=== PATIENT | male | born 1995 | race African-American/Black ===

== ENCOUNTER 2018-11-09 17:03 | Emergency (ER) | payer OTHER ==
[~2018-11-09] VITALS: Ht 190.5 cm; Wt 82.6 kg
[2018-11-09] MEDS ORDERED: FAMOTIDINE 20 MG/2 ML VIAL IVP ONE (17:35)
[2018-11-09] MEDS ORDERED: NACL 0.9% 1,000 ML IV ONE ×2 (17:35→19:15)
[2018-11-09] MEDS ORDERED: ONDANSETRON 4 MG/2 ML VIAL IVP ONE ×2 (17:35→19:15)
[2018-11-09 18:15] LABS: BASOPHILS % (AUTO) 0.2 % (0.0-2.0); HEMATOCRIT 47.8 % (36-52); HEMOGLOBIN 16.1 g/dL (12.0-18.0); LYMPHOCYTES # (AUTO) 1.5 K/uL (2.0-11.5); LYMPHOCYTES % (AUTO) 18.6 % (20.5-51.1); MEAN CORPUSCULAR HEMOGLOBIN 33 pg (27-31); MEAN CORPUSCULAR HGB CONC 34 g/dL (33-37); MEAN CORPUSCULAR VOLUME 96.8 fL (80-94); MONOCYTES # (AUTO) 0.5 K/uL (0.8-1.0); NEUTROPHILS # (AUTO) 6.1 K/uL (1.8-7.7); NEUTROPHILS % (AUTO) 75.2 % (42.2-75.2); PLATELET COUNT (AUTO) 241 K/uL (140-450); RED BLOOD CELL COUNT(AUTO) 4.94 MIL/uL (4.20-6.10); RED CELL DISTRIBUTION WIDTH 13.1 % (11.6-13.7); WHITE BLOOD COUNT (AUTO) 8.2 K/uL (4.8-10.8)
--- NOTE | 2018-11-09 18:17 | NUR ---
BROUGHT IN BY FRIEND-, PT WITH SEVERE NAUSEA AND DRY HEAVING. ADMITS TO HAVE DRANK A BOTTLE OF VODKA BY HIMSELF LAST NIGHT. PT UNABLE TO REMAIN STILL FOR MORE THAN 2-3 MINS. DENIES INJURY TO SELF OR OTHERS. FULL CLEAR SPEECH
--- NOTE | 2018-11-09 18:30 | NUR ---
PT PLACED ON BEDSIDE [employer]ING [employer]ER
[2018-11-09 18:33] LABS: ANION GAP 20.9 (8-16); CREATININE 1.2 mg/dL (0.7-1.3); POTASSIUM 3.9 mmol/L (3.5-5.1)
[2018-11-09 18:38] LABS: ALBUMIN 4.7 g/dL (3.4-5.0)
--- NOTE | 2018-11-09 19:00 | NUR ---
PT RESTING IN BED, STATES HE FEELS A LITTLE BETTER BUT WOULD LIKE SOME MORE FLUIDS TO BE GIVEN.
[2018-11-09 20:49] VITALS: BP 116/67
--- NOTE | 2018-11-09 20:50 | NUR ---
Patient discharged with v/s stable. Written and verbal after care instructions given and explained. Patient alert, oriented and verbalized understanding of instructions. Ambulatory with steady gait. All questions addressed prior to discharge. ID band removed. Patient advised to follow up with PMD. Rx of PEPCID, ZOFRAN given. Patient educated on indication of medication including possible reaction and side effects. Opportunity to ask questions provided and answered.
== END 2018-11-09 20:50 | disposition home or self-care (01) ==
LOC: MED 17:03
DX: K29.70 Gastritis, unspecified, without bleeding (principal); F32.9 Major depressive disorder, single episode, unspecified; Z88.8 Allergy status to other drugs, medicaments and biological substances; Z91.018 Allergy to other foods
CPT/HCPCS: 36415; 80053; 85025; 96361; 96374; 96375; 96376; 99283; J2405; J3490; J7030

== ENCOUNTER 2019-03-28 11:43 | Emergency (ER) | payer OTHER ==
[~2019-03-28] VITALS: Ht 182.9 cm; Wt 83.0 kg
[2019-03-28 11:50] VITALS: BP 131/68
--- NOTE | 2019-03-28 11:51 | NUR ---
Patient ambulated to bed 9. RN evaluating patient at bedside.
--- NOTE | 2019-03-28 11:56 | NUR ---
PT COUGH X 3 WEEKS. REQUESTING COUGH SYRUP WITH PROMETHAZINE. PATIENT STATES PAIN OF 4/10 AT THIS TIME; VSS; PATIENT POSITIONED FOR COMFORT; HOB ELEVATED; BEDRAILS UP X1; BED DOWN. ER MD MADE AWARE OF PT STATUS.
[2019-03-28 12:28] VITALS: BP 121/61
--- NOTE | 2019-03-28 12:28 | NUR ---
Patient discharged with v/s stable. Written and verbal after care instructions given and explained. Patient alert, oriented and verbalized understanding of instructions. Ambulatory with steady gait. All questions addressed prior to discharge. ID band removed. Patient advised to follow up with PMD. Rx of Promethazine given. Patient educated on indication of medication including possible reaction and side effects. Opportunity to ask questions provided and answered.
== END 2019-03-28 12:28 | disposition home or self-care (01) ==
LOC: MED 11:43
DX: R05 Cough (principal); F17.210 Nicotine dependence, cigarettes, uncomplicated; F15.10 Other stimulant abuse, uncomplicated; Z91.02 Food additives allergy status
CPT/HCPCS: 99283

== ENCOUNTER 2019-05-07 15:24 | Emergency (ER) | payer OTHER ==
[~2019-05-07] VITALS: Ht 190.5 cm; Wt 74.4 kg
[2019-05-07 15:25] VITALS: BP 136/99
--- NOTE | 2019-05-07 15:31 | NUR ---
Triage completed, ambulated out to ER waiting room.
--- NOTE | 2019-05-07 15:41 | NUR ---
Patient ambulated to bed 2.
[2019-05-07 16:18] VITALS: BP 130/60
--- NOTE | 2019-05-07 16:18 | NUR ---
Patient discharged with v/s stable. Written and verbal after care instructions given and explained. Patient alert, oriented and verbalized understanding of instructions. Ambulatory with steady gait. All questions addressed prior to discharge. ID band removed. Patient advised to follow up with PMD. Rx of ALBUTEROL, PROMETHAZINE given. Patient educated on indication of medication including possible reaction and side effects. Opportunity to ask questions provided and answered.
== END 2019-05-07 16:18 | disposition home or self-care (01) ==
LOC: MED 15:24
DX: J45.909 Unspecified asthma, uncomplicated (principal)
CPT/HCPCS: 99283

== ENCOUNTER 2019-06-17 12:23 | Emergency (ER) | payer OTHER ==
[~2019-06-17] VITALS: Ht 190.5 cm; Wt 81.6 kg
[2019-06-17 12:29] VITALS: BP 141/86
--- NOTE | 2019-06-17 12:58 | NUR ---
23 Y/O MALE C/O COUGH/SORE THROAT X1 WEEK, DRY COUGH AND ITCHY THROAT. DENIES ANY RECENT TRAVEL/ILLNESS. RESP EVEN AND UNLABORED. DENIES CP/SOB. LUNG SOUNDS CLEAR IN BILAT LOBES. DENIES N/V/D. BOWEL SOUNDS NORMOACTIVE IN ALL QUADRANTS. AAOX4. CAP REFILL <3. NO DISTRESS NOTED AT THIS TIME. PMH: ASTHMA NKA
[2019-06-17] MEDS ORDERED: DEXAMETHASONE 4 MG/ML VIAL PO ONE (13:00)
[2019-06-17 13:41] VITALS: BP 141/86
--- NOTE | 2019-06-17 13:42 | NUR ---
Patient discharged with v/s stable. Written and verbal after care instructions given and explained. Patient alert, oriented and verbalized understanding of instructions. Ambulatory with steady gait. All questions addressed prior to discharge. ID band removed. Patient advised to follow up with PMD. Rx of HYDROCORTISONE CREAM given. Patient educated on indication of medication including possible reaction and side effects. Opportunity to ask questions provided and answered.
== END 2019-06-17 13:42 | disposition home or self-care (01) ==
LOC: MED 12:23
DX: S40.862A Insect bite (nonvenomous) of left upper arm, initial encounter (principal); J06.9 Acute upper respiratory infection, unspecified; J45.909 Unspecified asthma, uncomplicated; Z91.018 Allergy to other foods; W57.XXXA Bitten or stung by nonvenomous insect and other nonvenomous arthropods, initial encounter; Y93.89 Activity, other specified; Y92.89 Other specified places as the place of occurrence of the external cause; Y99.8 Other external cause status
CPT/HCPCS: 99283; J1100

== ENCOUNTER 2021-01-15 22:09 | Emergency (ER) | payer OTHER ==
[~2021-01-15] VITALS: Ht 188 cm; Wt 72.6 kg
[2021-01-15 22:10] VITALS: BP 144/66
--- NOTE | 2021-01-15 22:13 | NUR ---
TO LOBBY A/W BED AMBULATORY
--- NOTE | 2021-01-16 00:17 | NUR ---
called for patient, no answer at this time
== END 2021-01-16 00:17 | disposition left against medical advice (07) ==
LOC: MED 22:09
DX: M25.562 Pain in left knee (principal); Z53.21 Procedure and treatment not carried out due to patient leaving prior to being seen by health care provider